=== PATIENT | female | born 1940 | race Caucasian/White ===

== ENCOUNTER → 2023-10-08 15:55 | Outpatient (REF) | payer MEDICARE, OTHER, SELFPAY | LOC: RCS 15:55 | PROVIDERS: ATTENDING PHYSICIAN Internal Medicine Cardiovascular Disease; FAMILY PHYSICIAN Family Medicine | DX: I10 Essential (primary) hypertension (principal); I70.0 Atherosclerosis of aorta | CPT/HCPCS: 93306 ==

== ENCOUNTER → 2024-05-02 10:22 | Outpatient (REF) | payer MEDICARE, OTHER, SELFPAY ==
[2024-05-02 12:09] LABS: % Basophils 1.2 % (0-2); % Eosinophils 3.5 % (0-6); % Immature Granulocytes 0.2 % (0-0.5); % Lymphocytes 29.1 % (20.5-51.1); % Monocytes 9.1 % (1.7-9.3); % Neutrophils 56.9 % (42.2-75.2); Absolute Basophils 0.1 10^3/uL (0-0.2); Absolute Eosinophils 0.2 10^3/uL (0-0.7); Absolute Lymphocytes 1.5 10^3/uL (1.2-3.4); Absolute Monocytes 0.5 10^3/uL (0.1-0.6); Absolute Neutrophils 2.9 10^3/uL (1.4-6.5); Hematocrit 41.3 % (37.0-47.0); Hemoglobin 13.7 g/dL (12.0-16.0); Mean Corp Hgb Conc. 33.2 g/dL (33.0-37.0); Mean Corpuscular Hgb 31.1 pg (27.0-31.0); Mean Corpuscular Volume 93.9 fL (81.0-99.0); Nucleated Red Blood Cells % 0 %; Platelet Count 180 10^3/uL (130-400); Red Cell Dist. Width 14.6 % (11.5-14.5); White Blood Cell Count 5.1 10^3/uL (4.8-10.8)
[2024-05-02 12:33] LABS: ALT (SGPT) 24 U/L (0-35); AST (SGOT) 34 U/L (14-36); Albumin 4.4 g/dl (3.5-5.0); Alkaline Phosphatase 47 U/L (38-126); Blood Urea Nitrogen 23 mg/dl (7-17); Calcium 9.5 mg/dl (8.4-10.2); Carbon Dioxide 25 mmol/L (22-30); Chloride 106 mmol/L (98-107); Glucose 81 mg/dl (70-99); HDL Cholesterol 98 mg/dl; LDL Cholesterol, Calculated 140 mg/dl; Potassium 5.1 mmol/L (3.5-5.1); Sodium 141 mmol/L (135-145); Total Bilirubin 0.8 mg/dl (0.2-1.3); Total Cholesterol 248 mg/dl (50-199); Total Protein 6.8 g/dl (6.3-8.2); Triglyceride 53 mg/dl (10-149); Very Low Density Lipoprotein 10 mg/dl (0-30); eGFR > 60.00
[2024-05-02 12:46] LABS: Vitamin D, 25-OH*** 22.5 ng/mL (30-80)
[2024-05-02 13:00] LABS: TSH Reflex To Free T4 1.98 uIU/ml (0.47-4.68)
[2024-05-02 13:36] LABS: Folate > 20.0 ng/ml (2.76-20); Vitamin B12 738 pg/ml (239-931)
== END ==
LOC: REG 10:22
PROVIDERS: ATTENDING PHYSICIAN Family Medicine
DX: I11.9 Hypertensive heart disease without heart failure (principal); I51.89 Other ill-defined heart diseases; E78.00 Pure hypercholesterolemia, unspecified; I70.0 Atherosclerosis of aorta; M85.89 Other specified disorders of bone density and structure, multiple sites; E55.9 Vitamin D deficiency, unspecified; Z79.899 Other long term (current) drug therapy; F32.0 Major depressive disorder, single episode, mild
CPT/HCPCS: 36415; 80053; 80061; 82306; 82607; 82746; 84443; 85025

== ENCOUNTER → 2024-05-14 14:48 | Outpatient (REF) | payer MEDICARE, OTHER, SELFPAY | LOC: WDC 14:48 | PROVIDERS: ATTENDING PHYSICIAN Family Medicine | DX: Z12.31 Encounter for screening mammogram for malignant neoplasm of breast (principal); Z79.899 Other long term (current) drug therapy; Z78.0 Asymptomatic menopausal state | CPT/HCPCS: 77063; 77067; 77080 ==

== ENCOUNTER → 2024-08-25 16:05 | Outpatient (REF) | payer MEDICARE, OTHER, SELFPAY ==
[2024-08-25 17:47] LABS: Vitamin D, 25-OH*** 37.9 ng/mL (30-80)
== END ==
LOC: REG 16:05
PROVIDERS: ATTENDING PHYSICIAN Family Medicine
DX: E55.9 Vitamin D deficiency, unspecified (principal)
CPT/HCPCS: 36415; 82306

== ENCOUNTER 2024-11-06 15:14 | Emergency (ER) | payer MEDICARE, OTHER, SELFPAY ==
[2024-11-06 15:19] VITALS: BP 164/84
[2024-11-06 18:52] LABS: % Basophils 0.4 % (0-2); % Eosinophils 3.3 % (0-6); % Immature Granulocytes 0.3 % (0-0.5); % Lymphocytes 26.6 % (20.5-51.1); % Monocytes 9.8 % (1.7-9.3); % Neutrophils 59.6 % (42.2-75.2); Absolute Eosinophils 0.3 10^3/uL (0-0.7); Absolute Lymphocytes 2.1 10^3/uL (1.2-3.4); Absolute Monocytes 0.8 10^3/uL (0.1-0.6); Absolute Neutrophils 4.6 10^3/uL (1.4-6.5); Hematocrit 36.7 % (37.0-47.0); Hemoglobin 12.9 g/dL (12.0-16.0); Mean Corp Hgb Conc. 35.1 g/dL (33.0-37.0); Mean Corpuscular Hgb 32.5 pg (27.0-31.0); Mean Corpuscular Volume 92.4 fL (81.0-99.0); Nucleated Red Blood Cells % 0 %; Platelet Count 174 10^3/uL (130-400); Red Blood Cell Count 3.97 10^6/uL (4.20-5.40); Red Cell Dist. Width 13.2 % (11.5-14.5); White Blood Cell Count 7.8 10^3/uL (4.8-10.8)
[2024-11-06 19:06] LABS: ALT (SGPT) 23 U/L (0-35); AST (SGOT) 27 U/L (14-36); Alkaline Phosphatase 53 U/L (38-126); Blood Urea Nitrogen 17 mg/dl (7-17); Calcium 9.3 mg/dl (8.4-10.2); Carbon Dioxide 22 mmol/L (22-30); Chloride 103 mmol/L (98-107); Glucose 84 mg/dl (70-99); Potassium 4.4 mmol/L (3.5-5.1); Sodium 130 mmol/L (135-145); Total Bilirubin 1.5 mg/dl (0.2-1.3); Total Protein 6.4 g/dl (6.3-8.2); eGFR > 60.00
[2024-11-06 19:09] LABS: Uric Acid 4.9 mg/dl (2.5-6.2)
[2024-11-06 19:19] LABS: Erythrocyte Sed Rate 11 mm/hour (0-20)
--- NOTE | 2024-11-06 19:45 | ED.MUSCINJ ---
HPI-Injury
General
Chief Complaint: Musculo-Skeletal Complaint
Source: patient
Exam Limitations: none
Time Seen by Provider: 11/06/24 17:21
Nursing documentation reviewed up to this point in time: agreed with
History of Present Illness-Injury
Is this injury a work related problem?: No
Is pt an associate of [facility]/[place]?: No
Initial Injury comments:
Patient to ED with complaint of righth and pain. No history of trauma. Denies fever/chills, recent illness. No redness to hand. Brought to ED by spouse for eval.
Past History
Past History
ED Past Medical History: HTN and Other (History of previous Lyme disease)
ED Past Surgical History: Appendectomy
Social History
Tobacco: Non-smoker
Alcohol: Occasional
Drug: None
Personal:
Living: with family
Employment: Retired
Family History
Family History: Other (Noncontributory)
Review of Systems
Review of Systems
Allergies reviewed?: Yes
All Other Systems: ROS reviewed and negative except as documented in HPI and ROS
Constitutional: Reports no symptoms
EENT: Reports no symptoms
Respiratory: Reports no symptoms
Cardiac: Reports no symptoms
ABD/GI: Reports no symptoms
: Reports no symptoms
Musculoskeletal: Reports joint pain (right hand pain)
Skin: Reports no symptoms
Neurological: Reports no symptoms
Psychiatric: Reports no symptoms
Musculoskeletal Injury Exam
Musculoskeletal Injury Exam
Right Hand:
Pain with Movement?: Moderate
Tender to palpation?: Moderate
Soft tissue swelling?: Mild
External deformity and angulation?: None
Joint effusion?: None
Contusion?: None
Hematoma-local bleeding into tissue?: None
Strain- Sprain- Tear (Connective tissue injury)?: None
Crepitus with movement?: No
Joint instability?: No
Malalignment/deformity?: No
Range of motion: Limited
Distal skin color and temperature: normal-warm & good color
Capillary Refill: normal
Normal distal neurovascular exam?: Yes
Peripheral Pulses: radial (right): 3+
Phy Exam
General Physical Exam
General Presentation: well appearing and no apparent distress
General age: appears stated age
General Skin: warm
General Habitus: normal
Musculoskeletal Exam
Musculoskeletal Exam: neuro vasc intact and other (pain and swelling to right hand. no erythema. )
Skin Exam
Skin Exam: normal color, warm/dry and no rash
Psychiatric Exam
Psychiatric Exam: normal mood/affect
Injury Course
Orders/Labs/Results
Orders:
Orders
11/06/24 15:21
Wrist, Right 3 Views [CR Wrist - Right Min 3 Views] Urgent
Comment:
Reason For Exam: pain
11/06/24 17:34
US Periph Venous UPPER Ext RT Urgent
Comment:
Reason For Exam: RUE pain and swelling
11/06/24 18:41
CRP [C-Reactive Protein] Urgent
Complete Blood Count/With Diff Urgent
Comprehensive Metabolic Panel Urgent
Lyme Progressive Urgent
Sed Rate [Erythrocyte Sed Rate] Urgent
Uric Acid Urgent
11/06/24 19:41
Sling Right-Treatment ONCE
Hobucken Wrist Right-Tx ONCE
Abnormal Lab Results
11/06/24
18:41
RBC 3.97 L 10^6/uL
(4.20-5.40)
Hct 36.7 L %
(37.0-47.0)
MCH 32.5 H pg
(27.0-31.0)
Absolute Monos (auto) 0.8 H 10^3/uL
(0.1-0.6)
Monocytes % 9.8 H %
(1.7-9.3)
Sodium 130 L mmol/L
(135-145)
Creatinine 0.5 L mg/dL
(0.6-1.0)
Total Bilirubin 1.5 H mg/dl
(0.2-1.3)
11/06/24 18:41
11/06/24 18:41
*Radiology
Radiology exam reviewed: radiology read reviewed
*Pulse Oximetry
Patient hypoxic: no
*Critical Care Note
Total Time (30-74mins, 75-104mins- exclusive of procedures): Not Applicable
Update Note
Update Note:
Patient to ED with complaint of right ahand pain and swelling. No history of trauma. Labs reviewed. WBC, sed rate, crp, uric acid all normal. lyme titer pending. US neg for DVT. Neuro-vasc intact. Will place in spint and sling, continue ice
and ibuprfen at home. Follow up with orthopedics nexxt week. Given instructions on s/s to return to ED and she is agreeable to plan.
ED Attending Note
-
Portions of this chart may have been created with voice recognition software.� Occasional wrong word or��sound alike� substitutions may have occurred due to the inherent limitations of voice recognition software.
Discharge Plan
Departure
Patient Disposition: Home (Routine Discharge)
Date of Disposition: 11/06/24
Time of Disposition: 19:43
Patient with high blood pressure during this ER visit?: No
Condition: Good
Covid-19: Not Applicable
Discharge Problem:
Hand pain
Instructions: Hand Pain (DC), Ibuprofen, How to Use a Shoulder Sling, Using Cold for Pain, Splint Care
Prescriptions:
No Action
bisoprolol fumarate 5 MG tablet
5 mg PO DAILY
Referrals:
Moose Garnica MD [Active, Orthopedics] - Call in 1-3 days for appt
Shtern,Vicki, MD [Family Provider, Family Practice]
Interventions
Interventions:
*Risk Screen - Suicide Last Done: 11/06/24 15:19
*General Assessment Last Done: 11/06/24 17:00
*Neglect/Abuse Screening Last Done: 11/06/24 15:19
*ED- Fall Risk Assessment Last Done: 11/06/24 17:00
*ED COVID-19 Vaccine History Last Done: 11/06/24 17:00
ED-Musculoskeletal Assessment Last Done: 11/06/24 17:00
Discharge Date and Time
Print Language: ROMANSH
[2024-11-06 20:00] VITALS: BP 154/64
[2024-11-09 13:11] LABS: Lyme Antibody Screen, EIA Negative (Negative)
== END 2024-11-06 20:01 | disposition home or self-care (01) ==
LOC: EMR 15:14
PROVIDERS: Nurse Practitioner; EMERGENCY PHYSICIAN Emergency Medicine; FAMILY PHYSICIAN Family Medicine
DX: M79.641 Pain in right hand (principal); R22.31 Localized swelling, mass and lump, right upper limb; I10 Essential (primary) hypertension; Z90.49 Acquired absence of other specified parts of digestive tract
CPT/HCPCS: 29125; 99284; 73110; 80053; 84550; 85025; 85652; 86140; 86618; 93971

== ENCOUNTER → 2024-11-30 14:18 | Outpatient (REF) | payer MEDICARE, OTHER, SELFPAY ==
[2024-11-30 16:00] LABS: % Basophils 0.7 % (0-2); % Eosinophils 3.4 % (0-6); % Immature Granulocytes 0.2 % (0-0.5); % Lymphocytes 26.4 % (20.5-51.1); % Neutrophils 59.3 % (42.2-75.2); Absolute Eosinophils 0.2 10^3/uL (0-0.7); Absolute Lymphocytes 1.5 10^3/uL (1.2-3.4); Absolute Monocytes 0.6 10^3/uL (0.1-0.6); Absolute Neutrophils 3.3 10^3/uL (1.4-6.5); Hematocrit 37.8 % (37.0-47.0); Hemoglobin 12.4 g/dL (12.0-16.0); Mean Corp Hgb Conc. 32.8 g/dL (33.0-37.0); Mean Corpuscular Hgb 31.1 pg (27.0-31.0); Mean Corpuscular Volume 94.7 fL (81.0-99.0); Mean Platelet Volume 9.9 fL (7.4-10.4); Nucleated Red Blood Cells % 0 %; Platelet Count 153 10^3/uL (130-400); Red Blood Cell Count 3.99 10^6/uL (4.20-5.40); Red Cell Dist. Width 13.3 % (11.5-14.5); White Blood Cell Count 5.6 10^3/uL (4.8-10.8)
[2024-11-30 16:57] LABS: ALT (SGPT) 23 U/L (0-35); AST (SGOT) 26 U/L (14-36); Albumin 4.1 g/dl (3.5-5.0); Alkaline Phosphatase 48 U/L (38-126); Blood Urea Nitrogen 20 mg/dl (7-17); Calcium 9.3 mg/dl (8.4-10.2); Carbon Dioxide 26 mmol/L (22-30); Chloride 110 mmol/L (98-107); Glucose 83 mg/dl (70-99); HDL Cholesterol 87 mg/dl; Iron 108 ug/dl (37-170); LDL Cholesterol, Calculated 155 mg/dl; Potassium 4.4 mmol/L (3.5-5.1); Sodium 139 mmol/L (135-145); Total Cholesterol 253 mg/dl (50-199); Total Protein 6.3 g/dl (6.3-8.2); Triglyceride 57 mg/dl (10-149); Very Low Density Lipoprotein 11 mg/dl (0-30); eGFR > 60.00
[2024-11-30 17:06] LABS: Percent Saturation 37 % (20-50); Total Iron Binding Capacity 290 ug/dl (265-497)
[2024-11-30 17:25] LABS: TSH Reflex To Free T4 1.53 uIU/ml (0.47-4.68)
[2024-11-30 17:29] LABS: Ferritin 85.1 ng/ml (11.1-264.0)
== END ==
LOC: REG 14:18
PROVIDERS: ATTENDING PHYSICIAN Family Medicine
DX: D64.9 Anemia, unspecified (principal); E78.00 Pure hypercholesterolemia, unspecified; I11.9 Hypertensive heart disease without heart failure; I27.20 Pulmonary hypertension, unspecified
CPT/HCPCS: 36415; 80053; 80061; 82728; 83540; 83550; 84443; 85025

== ENCOUNTER 2024-12-31 09:51 | Emergency (ER) | payer MEDICARE, OTHER, SELFPAY ==
[2024-12-31 10:01] VITALS: BP 181/71
--- NOTE | 2024-12-31 10:05 | ED.GENMED ---
History of Present Illness
General
Chief Complaint: Chest Pain
Time Seen by Provider: 12/31/24 10:05
History of Present Illness
History of Present Illness:
TIME OF INITIAL EVALUATION
- 10:05 AM
REVIEW OF OLD RECORDS
- The patient has history of pneumonia, high blood pressure
Note:
CHIEF COMPLAINT(S)
Intense pain under the left arm inside the rib cage experienced upon waking.
HISTORY OF PRESENT ILLNESS
The patient is an 84-year-old female who presented with a chief complaint of intense pain under the left arm inside the rib cage, noticed upon waking at approximately 7:20 AM. This pain becomes noticeable and intensifies upon deep inspiration. The
patient describes it as very intense initially but notes 'its not an agony' at present. She denies any blood clots in the past and no pain upon chest wall palpation. No shortness of breath was noted, and the pain is not significantly influenced by
movement or twisting.
The patient mentions a recent session of the Freda chen extremely gentle touch therapy experienced yesterday while face down�and wonders if her current symptoms could be related. She also has concerns about atypical heart attack symptoms
in women, although she denies having diabetes. The attending physician found no evidence of heart attack on the initial electrocardiogram, and cardiac markers are pending. The patient took her blood pressure medication that morning but presented
with elevated blood pressure in the emergency department.
EXTERNAL RECORDS REVIEWED
The attending physician is awaiting results from pending blood work, specifically cardiac markers and kidney function tests. Electrocardiogram results were reviewed on-site and showed no evidence of myocardial infarction.
REVIEW OF SYSTEMS
- Respiratory: Pain with deep inspiration, denies shortness of breath.
- Cardiovascular: Elevated blood pressure noted in the emergency department. No swelling in lower extremities aside from minor varicose veins.
- Gastrointestinal: No gastrointestinal complaints reported.
- Musculoskeletal: Patient experienced gentle manipulation therapy yesterday which involved the shoulders.
PHYSICAL EXAM
General: Alert, no acute distress.
Skin: Warm, dry. No rash or signs indicative of shingles.
Head: Normocephalic, atraumatic.
Neck: Supple, trachea midline.
Ears, Nose, Mouth, and Throat: Oral mucosa moist.
Cardiovascular: Normal peripheral perfusion, no edema.
Respiratory: Respirations are non-labored, localized pain upon deep breath in the area described by the patient. No significant tenderness to palpation to the left chest wall
Gastrointestinal: Abdomen nondistended.
Back: Normal range of motion, normal alignment.
Musculoskeletal: Normal range of motion, normal strength. During examination, no tenderness on chest wall palpation.
Neurological: Alert and oriented to person, place, time, and situation, no focal neurological deficit observed.
Psychiatric: Cooperative, appropriate mood & affect.
PLAN
- Proceed with a computed tomography scan of the chest to rule out serious conditions, such as a pulmonary embolism.
- Administer Toradol (Ketorolac) to help alleviate pain and assist in diagnostic delineation, if the patient consents.
- Monitor blood pressure and recheck it if necessary.
- Await cardiac blood work results to further assess cardiovascular status.
- Reevaluate the patient once results from blood work and imaging are available.
DIFFERENTIAL DIAGNOSIS
The Differential Diagnosis includes, in no particular order and is not limited to:
1. Musculoskeletal pain (e.g., costochondritis or muscle strain)
2. Pulmonary embolism
3. Myocardial infarction (atypical presentation)
4. Pleuritis
5. Pneumothorax
6. Aortic dissection
7. Peptic ulcer disease
8. Gastroesophageal reflux disease
9. Herpes zoster (zoster sine herpete)
10. Anxiety or panic disorder
RADIOLOGY
- CTA chest shows no sign of dissection nor PE
EKG
- Sinus 54, rightward axis deviation, PACs nonspecific ST normality
LABS
- CBC normal, troponin normal
UPDATE
-SUMMARY OF ENCOUNTER
The patient, an 84-year-old female, presented to the emergency department with intense pain under the left arm inside the rib cage, initially noticed upon waking. The pain was exacerbated by deep inspiration. Initial evaluation in the emergency
department included an electrocardiogram, which showed no signs of a heart attack. A CT scan was performed to rule out serious conditions such as pulmonary embolism or aortic dissection. The results of the CT scan showed no signs of any blood clots,
aortic dissection, pneumonia, or rib fractures, indicating the absence of catastrophic issues in the chest. The likely diagnosis was inflammation, possibly musculoskeletal in origin, from the chest wall. The patient had not taken any medications for
pain prior to the emergency department visit.
EMERGENCY TREATMENTS ADMINISTERED
Ketorolac was administered in the emergency department to help alleviate pain.
PLAN
The patient is advised to take ibuprofen (Motrin) as an anti-inflammatory treatment. The recommended dosage is three to four tablets of [id number] ibuprofen (200 mg each) every eight hours with food, adhering to maximum dosing guidelines.
INDEPENDENT REVIEW OF LABS AND INTERPRETATION OF TESTS
My independent CT scan interpretation indicates no evidence of pulmonary embolism, aortic dissection, pneumonia, or rib fractures.
PATIENT EDUCATION AND COUNSELING
The patient was informed about the possible inflammation of chest wall structures causing pain and was counseled on the usage of ibuprofen as an anti-inflammatory measure. Instructions were provided to take three to four tablets (maximum dose) every
eight hours with food.
FOLLOW-UP INSTRUCTIONS
The patient was instructed to follow up with their primary care provider if symptoms persist or worsen.
MEDICATION RECONCILIATION
Ibuprofen (Motrin): Take three to four tablets of 200 mg each, with food, every eight hours as needed for pain.
MEDICAL DECISION MAKING
-Complexity of Data Reviewed: Chronic conditions affecting care, including differential diagnoses of musculoskeletal pain, pulmonary embolism, myocardial infarction, pleuritis, pneumothorax, aortic dissection, and others.
-Data:
Category 1
My independent interpretation of the CT scan indicates no evidence of pulmonary embolism, aortic dissection, pneumonia, or rib fractures.
Non-emergency department records reviewed: Initial electrocardiogram showed no evidence of myocardial infarction.
-Risk:
Consideration of Admission/Observation: Escalation of care including admission/observation was considered given the complexity and risk of the patients presenting complaint, exam findings, and/or their underlying comorbidities. However, ultimately I
feel the patient is safe for outpatient management with close follow up. Reasoning: Work-up reassuring, does not reveal any acute life/organ threatening processes, patients symptoms well controlled upon reevaluation, reexamination is reassuring,
vitals are stable, patient agreeable with discharge, reliable for follow-up.
DIAGNOSIS
Musculoskeletal pain - ICD-10: M79.1
Chest pain, unspecified - ICD-10: R07.9
Patient reports improvement after Toradol was given
Past History
Past History
ED Past Medical History: HTN and Other (History of previous Lyme disease)
ED Past Surgical History: Appendectomy
Social History
Tobacco: Non-smoker
Alcohol: Occasional
Drug: None
Personal:
Living: with family
Employment: Retired
Family History
Family History: Other (Noncontributory)
Phy Exam
Physical Exam
Physical Exam:
See HPI
Scores
Heart Score for Chest Pain Patients
STEMI patient?: Not applicable
Course
Orders/Labs/Results
Orders:
Orders
12/31/24 09:51
ECG [Electrocardiogram (*1)] Urgent
Reason for Study: Chest Pain
12/31/24 09:52
EKG- Treatment ONCE
12/31/24 10:00
Complete Blood Count/With Diff Urgent
Comprehensive Metabolic Panel Urgent
Troponin I Urgent
12/31/24 10:21
CT Chest PE Study Urgent
Comment:
Reason For Exam: L pleuritic pain
Ketorolac [Toradol] 15 mg IV NOW STA
Abnormal Lab Results
12/31/24
10:00
Monocytes % 11.3 H %
(1.7-9.3)
Eosinophils % 8.0 H %
(0-6)
BUN 21 H mg/dl
(7-17)
12/31/24 10:00
12/31/24 10:00
Vital Signs
Initial and Last Documented VS:
Initial Vital Signs
Temp Pulse Resp BP Pulse Ox
36.8 C 53 16 181/71 99
12/31/24 10:01 12/31/24 10:01 12/31/24 10:01 12/31/24 10:01 12/31/24 10:01
Last Documented Vital Signs
Temp Pulse Resp BP Pulse Ox
36.4 C 53 20 155/59 100
12/31/24 10:29 12/31/24 10:24 12/31/24 10:24 12/31/24 10:24 12/31/24 10:24
*Pulse Oximetry
SaO2: 99
Oxygen Mode of Delivery: Room air
Patient hypoxic: no
*Critical Care Note
Total Time (30-74mins, 75-104mins- exclusive of procedures): Not Applicable
ED Attending Note
-
Portions of this chart may have been created with voice recognition software.� Occasional wrong word or��sound alike� substitutions may have occurred due to the inherent limitations of voice recognition software.
Discharge Plan
Departure
Patient Disposition: Home (Routine Discharge)
Date of Disposition: 12/31/24
Time of Disposition: 12:22
Patient with high blood pressure during this ER visit?: Yes
Discharge Problem:
Acute chest wall pain
Instructions: Chest Pain That Is Not Caused by the Heart (DC), BLOOD PRESSURE
Prescriptions:
No Action
bisoprolol fumarate 5 MG tablet
5 mg PO DAILY
Referrals:
Vicki Valdez MD [Family Provider, Family Practice]
Activity Restrictions/Additional Instructions:
Cardiac blood work shows no sign of heart attack. CAT scan of the chest shows no aortic dissection and no blood clot. The cause of your pain likely is coming from your chest wall. We gave you dose of Toradol. I recommend 3-4 [id number]
ibuprofen (Motrin) every 8 hours with food for a few days. Return here if worse.
Interventions
Interventions:
*Risk Screen - Suicide Last Done: 12/31/24 10:00
*General Assessment Last Done: 12/31/24 10:00
*Neglect/Abuse Screening Last Done: 12/31/24 10:32
*ED- Fall Risk Assessment Last Done: 12/31/24 10:15
*ED COVID-19 Vaccine History Last Done: 12/31/24 10:15
ED- Cardiac Assessment Last Done: 12/31/24 10:30
Discharge Date and Time
Print Language: RUSSIAN
[2024-12-31 10:08] LABS: Hematocrit 41.4 % (37.0-47.0); Hemoglobin 13.7 g/dL (12.0-16.0); Mean Corp Hgb Conc. 33.1 g/dL (33.0-37.0); Mean Corpuscular Volume 93.5 fL (81.0-99.0); Nucleated Red Blood Cells % 0 %; Platelet Count 160 10^3/uL (130-400); Red Cell Dist. Width 13.4 % (11.5-14.5)
[2024-12-31 10:12] VITALS: BP 185/69
[2024-12-31 10:24] VITALS: BP 155/59
[2024-12-31 10:25] VITALS: BMI 25.5
[2024-12-31 10:33] LABS: ALT (SGPT) 19 U/L (0-35); AST (SGOT) 25 U/L (14-36); Albumin 4.4 g/dl (3.5-5.0); Alkaline Phosphatase 48 U/L (38-126); Blood Urea Nitrogen 21 mg/dl (7-17); Calcium 9.6 mg/dl (8.4-10.2); Carbon Dioxide 27 mmol/L (22-30); Chloride 106 mmol/L (98-107); Estimated Creatinine Clearance 62 ml/min; Glucose 86 mg/dl (70-99); Potassium 4.5 mmol/L (3.5-5.1); Sodium 138 mmol/L (135-145); Total Protein 7.0 g/dl (6.3-8.2); eGFR > 60.00
[2024-12-31] MEDS: TORADOL 15 MG IV (10:34)
[2024-12-31 10:44] LABS: Troponin I < 0.012 ng/ml
[2024-12-31 11:00] VITALS: BP 169/72
[2024-12-31 12:00] VITALS: BP 175/68
== END 2024-12-31 12:48 | disposition home or self-care (01) ==
LOC: EMR 09:51
PROVIDERS: EMERGENCY PHYSICIAN Emergency Medicine; FAMILY PHYSICIAN Family Medicine
DX: R07.89 Other chest pain (principal); I10 Essential (primary) hypertension; Z90.49 Acquired absence of other specified parts of digestive tract
CPT/HCPCS: 99284; 96374; 71275; 80053; 84484; 85025; 93005; Q9967

== ENCOUNTER → 2025-05-19 09:23 | Outpatient (REF) | payer MEDICARE, OTHER, SELFPAY ==
[2025-05-19 10:23] LABS: Hematocrit 40.2 % (37.0-47.0); Hemoglobin 13.6 g/dL (12.0-16.0); Mean Corp Hgb Conc. 33.8 g/dL (33.0-37.0); Mean Corpuscular Volume 92.2 fL (81.0-99.0); Nucleated Red Blood Cells % 0 %; Platelet Count 206 10^3/uL (130-400); Red Cell Dist. Width 13.5 % (11.5-14.5)
[2025-05-19 10:42] LABS: ALT (SGPT) 20 U/L (0-35); AST (SGOT) 26 U/L (14-36); Albumin 4.3 g/dl (3.5-5.0); Alkaline Phosphatase 56 U/L (38-126); Blood Urea Nitrogen 22 mg/dl (7-17); Calcium 9.9 mg/dl (8.4-10.2); Carbon Dioxide 28 mmol/L (22-30); Chloride 104 mmol/L (98-107); Glucose 88 mg/dl (70-99); HDL Cholesterol 94 mg/dl; LDL Cholesterol, Calculated 158 mg/dl; Potassium 4.3 mmol/L (3.5-5.1); Sodium 136 mmol/L (135-145); Total Protein 7.0 g/dl (6.3-8.2); Very Low Density Lipoprotein 11 mg/dl (0-30); eGFR > 60.00
== END ==
LOC: REG 09:23
PROVIDERS: ATTENDING PHYSICIAN Family Medicine
DX: F32.0 Major depressive disorder, single episode, mild (principal); I11.9 Hypertensive heart disease without heart failure; I51.89 Other ill-defined heart diseases; I27.20 Pulmonary hypertension, unspecified; E78.00 Pure hypercholesterolemia, unspecified
CPT/HCPCS: 36415; 80053; 80061; 84443; 85025